=== PATIENT | female | born 1990 | race Caucasian/White ===

== ENCOUNTER 2017-01-18 01:09 | Emergency (ER) | payer MEDICAID ==
[~2017-01-18] VITALS: Ht 167.6 cm; Wt 68.0 kg
[2017-01-18 01:50] VITALS: BP 124/80
== END 2017-01-18 03:40 | disposition left against medical advice (07) ==
LOC: ER 01:12
DX: H57.8 Other specified disorders of eye and adnexa (principal); R05 Cough
CPT/HCPCS: 99281; A4606; Z7610; Z7502